=== PATIENT | male | born 1975 | race Caucasian/White ===

== ENCOUNTER 2017-09-12 08:16 | Emergency (ER) | payer OTHER ==
[2017-09-12 08:36] VITALS: BP 122/80
--- NOTE | 2017-09-12 09:01 | ED ---
Throat Pain/Nasal Congestion - HPI Summary HPI Summary: 41 yr old male with the complaint of runny nose, post nasal drip, cough, sore throat, mild hoarse voice, and onset 5 days ago. - History of Current Complaint Chief Complaint: UCGeneralIllness - Allergies/Home Medications Allergies/Adverse Reactions: Allergies Allergy/AdvReac Type Severity Reaction Status Date / Time morphine Allergy Nausea And Verified 09/12/17 08:32 Vomiting Home Medications: Home Medications Acetaminophen [Acetaminophen Extra Strength] 500 mg PO Q6HR 09/12/17 [History Confirmed 09/12/17] Guaifenesin/Dextromethorphan [Cough & Chest Congest Dm Liq] 15 ml PO Q12HR 09/12 [History Confirmed 09/12/17] PMH/Surg Hx/FS Hx/Imm Hx - Surgical History Surgery Procedure, Year, and Place: L knee 1999, L foot 1990, R wrist 2004- Infectious Disease History: No Infectious Disease History: Denies: Traveled Outside the [place] in Last 30 Days - Family History Known Family History: Positive: None - Social History Occupation: Employed Full-time Alcohol Use: None Substance Use Type: Reports: None Smoking Status (MU): Light Every Day Tobacco Smoker Type: Cigarettes Amount Used/How Often: 6 cigs per day Length of Time of Smoking/Using Tobacco: 20 years Review of Systems Constitutional: Negative Positive: Sore Throat, Nasal Discharge Positive: Cough Positive: Other - back ache All Other Systems Reviewed And Are Negative: Yes Physical Exam Triage Information Reviewed: Yes Vital Signs On Initial Exam: Initial Vitals Temp Pulse Resp BP Pulse Ox 99.7 F 88 20 122/80 96 09/12/17 08:28 09/12/17 08:28 09/12/17 08:28 09/12/17 08:28 09/12/17 08:28 Vital Signs Reviewed: Yes Appearance: Positive: Well-Appearing, No Pain Distress Skin: Positive: Warm, Skin Color Reflects Adequate Perfusion Head/Face: Positive: Normal Head/Face Inspection Eyes: Positive: EOMI ENT: Positive: Normal ENT inspection, Pharyngeal erythema, Nasal congestion, TM red - right with scarlet appearing anterior TM, Hoarse voice - mild. Negative: Tonsillar swelling, Tonsillar exudate, Muffled voice Neck: Positive: Supple, Nontender Respiratory/Lung Sounds: Positive: Clear to Auscultation, Breath Sounds Present Cardiovascular: Positive: RRR. Negative: Murmur Abdomen Description: Positive: Nontender Musculoskeletal: Positive: Strength/ROM Intact Neurological: Positive: Sensory/Motor Intact, Alert, Oriented to Person Place, Time, CN Intact II-III, Normal Gait, Speech Normal Psychiatric: Positive: Normal - Hamilton Coma Scale Best Eye Response: 4 - Spontaneous Best Motor Response: 6 - Obeys Commands Best Verbal Response: 5 - Oriented Coma Scale Total: 15 Diagnostics - Vital Signs Vital Signs Temp Pulse Resp BP Pulse Ox 09/12/17 08:28 99.7 F 88 20 122/80 96 - Laboratory Lab Statement: Any lab studies that have been ordered have been reviewed, and results considered in the medical decision making process. EENT Course/Dx - Course Course Of Treatment: 41 yr old male with RIght OM, and likely mycoplasma given the URI symptoms plus the TM appearance. Will Rx with Zithromax. - Diagnoses Provider Diagnoses: Infection, mycoplasma, Bullous myringitis of right ear Discharge - Sign-Out/Discharge Documenting (check all that apply): Discharge/Admit/Transfer - Discharge Plan Condition: Good Disposition: HOME Prescriptions: Azithromycin TAB* [Zithromax TAB (Z-SILVERIO) 250 mg #6 tabs] 2 tab PO .TODAY, THEN 1 DAILY #1 silverio Patient Education Materials: Ear Infection (ED), Upper Respiratory Infection ( ED) Forms: *Work Release Referrals: Junie Horvath MD [Primary Care Provider] - 2 Days - Billing Disposition and Condition Condition: GOOD Disposition: HOME
== END 2017-09-12 09:07 | disposition home or self-care (01) ==
LOC: UCCORT 08:16
DX: H73.011 Bullous myringitis, right ear (principal); A49.3 Mycoplasma infection, unspecified site; F17.210 Nicotine dependence, cigarettes, uncomplicated; Z88.5 Allergy status to narcotic agent
CPT/HCPCS: 99212; G0463

== ENCOUNTER 2019-02-08 11:41 | Emergency (ER) | payer OTHER ==
[2019-02-08 12:46] VITALS: BP 118/73
--- NOTE | 2019-02-08 13:01 | UC ---
Throat Pain/Nasal Darius HPI - HPI Summary HPI Summary: 43-year-old male presents with one-week history of harsh productive cough. States he initially had some subjective fever and chills. States cough started to improve couple days ago and then yesterday began to worsen again. Reports cough is productive for clear sputum. Has some shortness of breath and sore throat with coughing. States today he had one episode of posttussive emesis with a coughing fit. Patient smokes 1/2-1 pack per day. Denies nasal congestion , runny nose, dysphagia, chest pain, palpitations, wheezing, abdominal pain, or nausea. - History of Current Complaint Chief Complaint: UCGeneralIllness Stated Complaint: COUGH Time Seen by Provider: 02/08/19 12:50 Hx Obtained From: Patient Pain Intensity: 0 - Allergies/Home Medications Allergies/Adverse Reactions: Allergies Allergy/AdvReac Type Severity Reaction Status Date / Time morphine Allergy Nausea And Verified 09/12/17 08:32 Vomiting PMH/Surg Hx/FS Hx/Imm Hx Previously Healthy: Yes - Denies significant PMH - Surgical History Surgical History: None Surgery Procedure, Year, and Place: L knee 1999, L foot 1990, R wrist 2004- - Family History Known Family History: Positive: Non-Contributory - Social History Occupation: Employed Full-time Lives: With Family Alcohol Use: None Substance Use Type: None Smoking Status (MU): Light Every Day Tobacco Smoker Type: Cigarettes Amount Used/How Often: 6 cigs per day Length of Time of Smoking/Using Tobacco: 20 years Household Exposure Type: Cigarettes Review of Systems All Other Systems Reviewed And Are Negative: Yes Constitutional: Positive: Fever, Chills Skin: Negative: Rash Eyes: Negative: Drainage, Eye Redness ENT: Positive: Sore Throat. Negative: Ear Ache, Nasal Discharge, Sinus Congestion, Sinus Pain/Tenderness Respiratory: Positive: Shortness Of Breath, Cough Cardiovascular: Negative: Palpitations, Chest Pain Gastrointestinal: Positive: Vomiting. Negative: Abdominal Pain, Nausea Genitourinary: Positive: Negative Musculoskeletal: Positive: Negative Neurological: Positive: Negative Is Patient Immunocompromised?: No Physical Exam - Summary Physical Exam Summary: GENERAL APPEARANCE: Well developed, well nourished, alert and cooperative, and appears to be in no acute distress. EYES: Conjunctiva clear. No drainage. PERRL, EOM intact. Vision is grossly intact. EARS: External auditory canals and tympanic membranes clear, hearing grossly intact. NOSE: No nasal discharge. THROAT: Mild pharyngeal erythema. No tonsilar inflammation, swelling, exudate, or lesions. Uvula midline. NECK: Neck supple, non-tender without lymphadenopathy. CARDIAC: Normal S1 and S2. No S3, S4 or murmurs. Rhythm is regular. There is no peripheral edema, cyanosis or pallor. Extremities are warm and well perfused. Capillary refill is less than 2 seconds. Peripheral pulses intact. LUNGS: Clear to auscultation without rales, rhonchi, wheezing or diminished breath sounds. Dry, harsh, non-productive cough. ABDOMEN: Positive bowel sounds. Soft, nondistended, nontender. No guarding or rebound. No masses or hepatosplenomegally. MUSKULOSKELETAL: ROM intact to all extremities. No joint erythema or tenderness. Normal muscular development. Normal gait. SKIN: Skin normal color, texture and turgor with no lesions or eruptions. Triage Information Reviewed: Yes Vital Signs: Initial Vital Signs Temp 99.4 F 02/08/19 12:42 Pulse 74 02/08/19 12:42 Resp 16 02/08/19 12:42 BP 118/73 02/08/19 12:42 Pulse Ox 97 02/08/19 12:42 Vital Signs Reviewed: Yes Throat Pain/Nasal Course/Dx - Course Course Of Treatment: 43-year-old male presents with one-week history of harsh productive cough. States he initially had some subjective fever and chills. States cough started to improve couple days ago and then yesterday began to worsen again. Reports cough is productive for clear sputum. Has some shortness of breath and sore throat with coughing. States today he had one episode of posttussive emesis with a coughing fit. Patient smokes 1/2-1 pack per day. Denies nasal congestion , runny nose, dysphagia, chest pain, palpitations, wheezing, abdominal pain, or nausea. Afebrile. Vital signs stable. Patient had mild pharyngeal erythema without tonsillar swelling or exudate, no cervical lymphadenopathy, clear bilateral breath sounds, dry, harsh nonproductive cough, and otherwise unremarkable exam. Discussed with patient that his symptoms were consistent with a cute bronchitis which was likely viral although with the improving and then worsening of symptoms cannot rule out the possibility of a secondary bacterial infection. We discussed the risks and benefits of treating with an antibiotic and the patient is electing to start at this time. Will treat with a course of azithromycin and provided him with Tessalon Perles one capsule every 8 hours as needed for cough. He is to follow-up with his primary care provider in 3-5 days if symptoms are not improving. Anticipatory guidance and warning symptoms are reviewed with the patient. Verbalizes understanding and agrees with plan of care. - Differential Dx/Diagnosis Differential Diagnosis/HQI/PQRI: Influenza, Pharyngitis, Sinusitis, Tonsillitis , URI, Other - Pneumonia, bronchitis Provider Diagnosis: Acute bronchitis Discharge ED - Sign-Out/Discharge Documenting (check all that apply): Patient Departure All imaging exams completed and their final reports reviewed: No Studies - Discharge Plan Condition: Stable Disposition: HOME Prescriptions: Azithromyxin THONG (NF) [Z-Thong (Zithromax) 250 mg tabs #6] 2 tab PO .TODAY, THEN 1 DAILY #6 tab Benzonatate CAP* [Tessalon 100 MG CAP*] 100 mg PO TID PRN #21 cap PRN Reason: Cough Patient Education Materials: Acute Bronchitis (ED) Forms: *Work Release Referrals: Mya Cabrera NP [Primary Care Provider] - 3 Days Additional Instructions: Your history and exam are consistent with acute bronchitis. Start azithromycin 2 tabs today then 1 tab a day for next 4 days. Be aware that the cough with bronchitis may persist for 2-3 weeks even if other symptoms have improved. Get plenty of rest. Drink plenty of fluids. Run a cool mist humidifer in your room at night. Take over the counter acetaminophen (Tylenol) or ibuprofen (Advil, Motrin) according to directions as needed for pain or fever. Take Tessalon Perles 1 cap every 8 hours as needed for cough. Follow up with your primary care provider in 3-5 days if symptoms do not improve. Seek immediate medical attention in the emergency room if you have fever greater than 100.5 F despite taking acetaminophen or ibuprofen, have chest pain , difficulty breathing, or have any worsening of symptoms. - Billing Disposition and Condition Condition: STABLE Disposition: Home - Attestation Statements Provider Attestation: I was available for consult. This patient was seen by the [facility]. The patient was not presented to, seen by, or examined by me. -Kyle
== END 2019-02-08 13:24 | disposition home or self-care (01) ==
LOC: UCCORT 11:41
DX: J20.9 Acute bronchitis, unspecified (principal); F17.210 Nicotine dependence, cigarettes, uncomplicated; Z88.5 Allergy status to narcotic agent
CPT/HCPCS: 99212; G0463